=== PATIENT | female | born 1975 | race Caucasian/White ===

== ENCOUNTER 2018-10-15 05:53 | Day surgery (SDC) | payer OTHER, BC ==
[2018-10-15] MEDS ORDERED: SOD CHLORIDE 0.9% 1,000 ML IV (06:00)
[2018-10-15] MEDS ORDERED: CEFAZOLIN 2 GM/50 ML (PMX) 50 ML IVPB (06:00)
[2018-10-15] MEDS ORDERED: CEFAZOLIN 1 GM INJ (07:00)
[2018-10-15] MEDS ORDERED: SEVOFLURANE 15 MIN (07:00)
[2018-10-15] MEDS ORDERED: EPHEDrine SULFATE 50 MG/5 ML SYG (07:00)
[2018-10-15] MEDS: BUPIVACAINE 0.5%/EPI (SDV) 30 ML INJ (08:01)
[2018-10-15] MEDS ORDERED: OXYCODONE/ACETAMINOPHEN (5/325) TAB PO ×2 (08:30)
[2018-10-15] MEDS ORDERED: HYDROmorphONE 1 MG/5 ML IV SYRINGE IV ×2 (08:30)
[2018-10-15] MEDS ORDERED: LABETALOL HCL 20MG INJ IV (08:30)
[2018-10-15] MEDS ORDERED: DIPHENHYDRAMINE 50 MG INJ IV (08:30)
[2018-10-15] MEDS ORDERED: ONDANSETRON 4 MG INJ IV (08:30)
[2018-10-15] MEDS ORDERED: FENTAnyl 50 MCG/ML VIAL IV ×2 (08:30)
[2018-10-15] MEDS ORDERED: MEPERIDINE 25 MG INJ IV (08:30)
[2018-10-15] MEDS ORDERED: EPHEDrine SULFATE 50 MG/5 ML SYG IV (08:30)
[2018-10-15] MEDS ORDERED: METOCLOPRAMIDE 10 MG INJ IV (08:30)
[2018-10-15] MEDS ORDERED: PROPOFOL 20 ML (08:52)
[2018-10-15] MEDS ORDERED: FENTAnyl 50 MCG/ML VIAL (08:52)
[2018-10-15] MEDS ORDERED: MIDAZOLAM 1 MG/ML 2 ML INJ (08:52)
[2018-10-15] MEDS ORDERED: ROCURONIUM 50 MG INJ (08:52)
[2018-10-15] MEDS ORDERED: DEXAMETHASONE 4 MG/ML 5 ML INJ (09:58)
[2018-10-15] MEDS ORDERED: ONDANSETRON 4 MG INJ (09:58)
[2018-10-15] MEDS ORDERED: KETOROLAC 30 MG INJ (09:58)
[2018-10-15] MEDS ORDERED: METOCLOPRAMIDE 10 MG INJ (09:58)
[2018-10-15] MEDS ORDERED: NEOSTIGMINE 3 MG/3 ML SYRINGE (09:59)
[2018-10-15] MEDS ORDERED: GLYCOPYRROLATE 0.4 MG INJ (09:59)
== END 2018-10-15 12:21 | disposition home or self-care (01) ==
LOC: SDS 05:53
DX: D17.1 Benign lipomatous neoplasm of skin and subcutaneous tissue of trunk (principal)
CPT/HCPCS: 21933; 88304